=== PATIENT | male | born 1955 | race Caucasian/White ===

== ENCOUNTER → 2017-08-03 | Outpatient (CLI) | payer OTHER ==
--- NOTE | 2017-08-03 16:59 | US ---
EXAMINATION TYPE: US kidneys/renal and bladder DATE OF EXAM: 08/03/2017 COMPARISON: US CLINICAL HISTORY: N18.5 Chronic kidney disease, stage 5. EXAM MEASUREMENTS: Right Kidney: 9.0 x 4.7 x 4.3 cm Left Kidney: 9.0 x 4.3 x 4.3 cm Right Kidney: lack of cortical medullary differentiation, cyst seen measuring 1.9 x 1.9 x 2.2cm Left Kidney: lack of cortical medullary differentiation,3.5 x 3.3 x 2.9cm Bladder: wnl IMPRESSION: There is a 3.5 cm cyst at the left renal hilum. No hydronephrosis. Bilateral cortical thinning consis tent with chronic renal failure. 2 cm cortical cyst lower pole right kidney. Hyperechoic renal cortex bilaterally consistent with chronic renal disease.
== END | disposition home or self-care (01) ==
LOC: RADUSWWP 15:55
PROVIDERS: ATTEND Internal Medicine Nephrology
DX: N28.1 Cyst of kidney, acquired (principal); N18.5 Chronic kidney disease, stage 5; R93.421 Abnormal radiologic findings on diagnostic imaging of right kidney; R93.422 Abnormal radiologic findings on diagnostic imaging of left kidney
CPT/HCPCS: 76770

== ENCOUNTER → 2017-08-25 | Outpatient (CLI) | payer OTHER ==
[2017-08-25 10:11] LABS: HCT 28.4 % (39.0-53.0); HGB 9.6 gm/dL (13.0-17.5); MCH 29.9 pg (25.0-35.0); MCHC 33.9 g/dL (31.0-37.0); MCV 88.3 fL (80.0-100.0); Mean Platelet Volume 8.1; Platelet Count 165 k/uL (150-450); RBC 3.21 m/uL (4.30-5.90); RDW 13.8 % (11.5-15.5); WBC 4.3 k/uL (3.8-10.6)
[2017-08-25 10:37] LABS: Potassium 5.2 mmol/L (3.5-5.1)
== END | disposition home or self-care (01) ==
LOC: LABPAT 09:36
PROVIDERS: ATTEND Anesthesiology
DX: Z01.812 Encounter for preprocedural laboratory examination (principal); Z01.818 Encounter for other preprocedural examination
CPT/HCPCS: 36415; 82565; 84132; 84520; 85027; 93005

== ENCOUNTER 2017-08-28 10:09 | Day surgery (SDC) | payer OTHER ==
[2017-08-21 08:54] VITALS: BMI 28.7
[~2017-08-28 10:09] MED LIST: HEPARIN SODIUM,PORCINE 5,000 UNIT/ML 1 ML VIAL SQ ONE; ceFAZolin IN SWFI 2 GM/20 ML SYRINGE IVP ONE
[2017-08-28 10:34] VITALS: RESP 16; TEMP 97.3
[2017-08-28] MEDS ORDERED: LIDOCAINE 1% 20 ML VIAL (10MG/ML) FOR IV START INTRADERMA PRN (10:35)
[2017-08-28] MEDS ORDERED: SCOPOLAMINE 1.5MG/72HR PATCH TRANSDERM ONE (10:35)
[2017-08-28] MEDS ORDERED: MIDAZOLAM 2 MG/2 ML VIAL IV PRN (10:35)
[2017-08-28] MEDS ORDERED: DEXAMETHASONE SOD PHOSPHATE 10 MG/ML 1 ML VIAL IV ONE (10:35)
[2017-08-28] MEDS ORDERED: HYDROmorphone 0.5 MG/0.5 ML SYRINGE IVP PRN (10:35)
[2017-08-28] MEDS ORDERED: ONDANSETRON 4 MG/2 ML VIAL IVP ONE (10:35)
[2017-08-28] MEDS ORDERED: LACTATED RINGERS 1,000 ML IV SCH (10:35)
[2017-08-28] MEDS ORDERED: KETAMINE 10 MG/ML 20 ML VIAL ONE (11:40)
[2017-08-28] MEDS ORDERED: fentaNYL (PF) 50 MCG/ML 2 ML AMP ONE (11:40)
[2017-08-28] MEDS ORDERED: PROPOFOL 10 MG/ML 20 ML VIAL IV ONE (11:40)
[2017-08-28] MEDS ORDERED: MIDAZOLAM 2 MG/2 ML VIAL ONE (11:40)
--- NOTE | 2017-08-28 11:42 | P.GSHP ---
History of Present Illness H&P Date: 08/28/17 Chief Complaint: Renal failure 62-year-old male known to our service. Patient contacted us by phone requesting a peritoneal dialysis catheter be placed. He was previously seen in the office to discuss these issues. He is not currently on hemodialysis. No abdominal pain. Previous appendectomy. Past Medical History Past Medical History: Hyperlipidemia, Hypertension, Renal Disease Additional Past Medical History / Comment(s): kidneys functioning below 5% History of Any Multi-Drug Resistant Organisms: None Reported Past Surgical History: Appendectomy, Orthopedic Surgery Additional Past Surgical History / Comment(s): rt eye surgery with cataract removed, lt knee arthroscopy Past Anesthesia/Blood Transfusion Reactions: No Reported Reaction Smoking Status: Former smoker - Past Family History Mother Family Medical History: Myocardial Infarction (NM) Additional Family Medical History / Comment(s): NM-age 38 Father Family Medical History: Cancer Additional Family Medical History / Comment(s): lung cancer Medications and Allergies Home Medications Medication Instructions Recorded Confirmed Type Aspirin 325 mg PO DAILY 08/21/17 08/28/17 History Baking Soda 0.5 tsp PO Q4HR 08/21/17 08/28/17 History Cholecalciferol [Vitamin D3] 3,000 unit PO BID 08/21/17 08/28/17 History Ferrous Sulfate [Feosol] 325 mg PO DAILY 08/21/17 08/28/17 History Metoprolol Tartrate [Lopressor] 50 mg PO BID 08/21/17 08/28/17 History Multivitamins, Thera [Multivitamin 1 tab PO DAILY 08/21/17 08/28/17 History (formulary)] Rosuvastatin [Crestor] 20 mg PO DAILY 08/21/17 08/28/17 History Terazosin HCl 5 mg PO DAILY 08/21/17 08/28/17 History cloNIDine HCL [Catapres] 0.05 mg PO BID 08/21/17 08/28/17 History hydrALAZINE HCL [Apresoline] 50 mg PO DAILY 08/21/17 08/28/17 History Allergies Allergy/AdvReac Type Severity Reaction Status Date / Time amlodipine [From Norvasc] Allergy feet Verified 08/28/17 10:34 swelling atorvastatin [From Lipitor] Allergy Rash/Hives Verified 08/28/17 10:34 moexipril [From Univasc] Allergy headache Verified 08/28/17 10:34 tramadol Allergy Nausea & Verified 08/28/17 10:34 Vomiting Surgical - Exam Vital Signs Temp Pulse Resp BP Pulse Ox 97.3 F L 64 16 125/65 97 08/28/17 10:18 08/28/17 10:18 08/28/17 10:18 08/28/17 10:18 08/28/17 10:18 Physical exam: General: Well-developed, well-nourished HEENT: Normocephalic, sclerae nonicteric Abdomen: Nontender, nondistended Extremities: No edema Neuro: Alert and oriented Results - Labs 08/28/17 10:42 Diabetes panel 08/28/17 Range/Units 10:42 Potassium 4.8 (3.5-5.1) mmol/L Pituitary panel 08/28/17 Range/Units 10:42 Potassium 4.8 (3.5-5.1) mmol/L Adrenal panel 08/28/17 Range/Units 10:42 Potassium 4.8 (3.5-5.1) mmol/L Assessment and Plan (1) Renal failure Narrative/Plan: Will proceed with peritoneal dialysis catheter insertion at this time. Risks of bleeding, infection, catheter malfunction, bowel injury, anesthesia complications were reviewed. He understands and wishes to proceed. Current Visit: Yes Status: Acute Code(s): N19 - UNSPECIFIED KIDNEY FAILURE SNOMED Code(s): 01636175
[2017-08-28] MEDS ORDERED: BUPIVACAINE (PF) 0.5% 30 ML VIAL SQ ONE (12:03)
[2017-08-28] MEDS ORDERED: MINERAL OIL 1 APPLIC/ML OIL MISCELLANE ONE (12:11)
[2017-08-28] MEDS ORDERED: NALOXONE 0.4 MG/ML 1 ML VIAL IV PRN (12:48)
[2017-08-28] MEDS ORDERED: HYDROcodone/APAP 5-325MG 1 EACH TAB PO PRN (12:48)
[2017-08-28 13:00] VITALS: BP 117/70; PULSE 61
--- NOTE | 2017-08-28 13:08 | P.OP ---
Date of Procedure: 08/28/17 Procedure(s) Performed: PREOPERATIVE DIAGNOSIS: Renal failure POSTOPERATIVE DIAGNOSIS: Same PROCEDURE: Peritoneal dialysis catheter insertion SURGEON: Robin EBL: Minimal ANESTHESIA: Sedation plus local COMPLICATIONS: None OPERATIVE PROCEDURE: The patient was placed in the operative table in the supine position. His abdomen was prepped and draped in usual sterile fashion. A small vertical incision was made in the left periumbilical location. Dissection down through the subcutaneous tissues took place using electrocautery. The anterior rectus was divided vertically using the scalpel. The rectus was bluntly. The posterior rectus was visualized. An 0 Vicryl pursestring was placed. A small opening in the posterior rectus fascia and peritoneum took place using a Metzenbaum scissors. There were no adhesions to the suture that was placed. The pigtail catheter was advanced into the pelvis over a stylette. No resistance was met. The inner cuff was secured to the fascia using the 0 Vicryl pursestring that was placed. The catheter was tunneled to an exit site in the right lateral lower quadrant. The catheter was connected to the 1 L bag of saline and approximated 800 mL of saline was easily introduced into the peritoneal cavity. The fluid was then allowed to evacuate. The majority of the fluid was returned. The anterior rectus fascia was then reapproximated using a running 0 Vicryl stitch. The subcutaneous tissues reprepped using 3-0 Vicryl sutures and the skin using 4-0 Monocryl sutures. The outpatient dialysis adapter was applied to the end of the catheter. A sterile dressings then applied after Steri-Strips were placed over the incision. DISPOSITION: Stable to recovery room
== END 2017-08-28 13:35 | disposition home or self-care (01) ==
LOC: OR 10:09
PROVIDERS: ATTEND Surgery
DX: N19 Unspecified kidney failure (principal); I10 Essential (primary) hypertension; E78.5 Hyperlipidemia, unspecified; Z87.891 Personal history of nicotine dependence; Z79.82 Long term (current) use of aspirin; Z79.899 Other long term (current) drug therapy; Z88.6 Allergy status to analgesic agent; Z91.048 Other nonmedicinal substance allergy status
CPT/HCPCS: 84132; 49421; C1752; J2250; J1644; J1100; J2405; J3010; J2704; J0690

== ENCOUNTER → 2020-10-15 | Outpatient (CLI) | payer OTHER, MEDICARE ==
--- NOTE | 2020-10-16 07:43 | ECHOF ---
Referral Reason:R01.1 cardiac murmur MEASUREMENTS -------- HEIGHT: 160.0 cm WEIGHT: 60.8 kg BP: 127/79 RVIDd: 3.2 cm (< 3.3) IVSd: 1.2 cm (0.6 - 1.1) LVIDd: 4.0 cm (3.9 - 5.3) LVPWd: 1.3 cm (0.6 - 1.1) IVSs: 1.8 cm LVIDs: 2.7 cm LVPWs: 1.6 cm LA Diam: 3.5 cm (2.7 - 3.8) LAESV Index (A-L): 28.15 ml/m Ao Diam: 3.9 cm (2.0 - 3.7) AV Cusp: 2.5 cm (1.5 - 2.6) MV EXCURSION: 13.666 mm (> 18.000) MV EF SLOPE: 27 mm/s (70 - 150) EPSS: 0.8 cm MV E Cameron: 0.92 m/s MV DecT: 321 ms MV A Cameron: 1.24 m/s MV E/A Ratio: 0.74 AV maxP.27 mmHg AV meanP.96 mmHg FINDINGS -------- Sinus rhythm. This was a technically adequate study. The left ventricular size is normal. There is mild concentric left ventricular hypertrophy. Overa ll left ventricular systolic function is normal with, an EF between 60 - 65 %. The right ventricle is normal in size. Normal LA size by volume 22+/-6 ml/m2. The right atrium is normal in size. Interatrial and interventricular septum intact. There is moderate aortic valve sclerosis. Trace to mild aortic regurgitation. There is mild to mo derate aortic stenosis present. Peak/mean gradient across the Aortic Valve is 34.27mmHg / 19.96mmHg. Can't exclude possible Bicuspid Aov. The mitral valve leaflets are mildly thickened. Mild mitral annular calcification present. The tricuspid valve appears structurally normal. Trace/mild (physiologic) pulmonic regurgitation. 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 Normal inferior vena cava with normal inspiratory collapse consistent with estimated right atrial pre ssure of 5 mmHg. There is no pericardial effusion. CONCLUSIONS -------- 1. The left ventricular size is normal. 2. There is mild concentric left ventricular hypertrophy. 3. Overall left ventricular systolic function is normal with, an EF between 60 - 65 %. 4. There is moderate aortic valve sclerosis. 5. Trace to mild aortic regurgitation. 6. There is mild to moderate aortic stenosis present. 7. Peak/mean gradient across the Aortic Valve is 34.27mmHg / 19.96mmHg. 8. Can't exclude possible Bicuspid Aov. 9. The mitral valve leaflets are mildly thickened. 10. Mild mitral annular calcification present. 11. Trace/mild (physiologic) pulmonic regurgitation. 12. 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 13. There is no pericardial effusion. STAFF EDUCATOR: Jazmin Wade RDCS
== END | disposition home or self-care (01) ==
LOC: RADECHMAIN 13:42
PROVIDERS: ATTEND Family Medicine
DX: I37.1 Nonrheumatic pulmonary valve insufficiency (principal); I35.1 Nonrheumatic aortic (valve) insufficiency; I35.0 Nonrheumatic aortic (valve) stenosis
CPT/HCPCS: 93306